=== PATIENT | female | born 1990 | race Caucasian/White ===

== ENCOUNTER 2021-05-27 09:40 | Emergency (ER) | payer OTHER ==
[~2021-05-27] VITALS: Ht 160 cm; Wt 75.0 kg
[2021-05-27 09:49] VITALS: BP 110/61; Ht 160 cm; Wt 75.0 kg
[2021-05-27] MEDS ORDERED: PREDNISONE50 MG PO (10:00)
== END 2021-05-27 10:33 | disposition home or self-care (01) ==
LOC: D.ER 09:40
DX: L23.7 Allergic contact dermatitis due to plants, except food (principal)